=== PATIENT | female | born 1985 | race Caucasian/White ===

== ENCOUNTER 2016-06-27 00:05 | Emergency (ER) | payer OTHER ==
[~2016-06-27 00:05] MED LIST: ACETAMINOPHEN PO; BENZONATATE PO; FLEXERIL10 MG PO; IBUPROFEN PO; NO MEDICATIONS; ORUDIS75 M1 PO; PERCOCET PO
[2016-06-27 00:51] LABS: BASOPHIL# 0.1 X10e3 (0-0.3); BASOPHIL% 0.6 % (0-2.5); EOSINOPHIL# 0.1 X10e3 (0-0.7); EOSINOPHIL% 0.9 % (0.0-7.0); HEMATOCRIT 43.9 % (35.0-45.0); HEMOGLOBIN 14.2 gm/dL (12.0-16.0); LYMPHOCYTE# 2.7 X10e3 (1.0-3.5); LYMPHOCYTE% 22.6 % (17.0-45.0); MEAN CELL VOLUME 88.2 FL (83-96); MEAN CORPUSCULAR HEMOGLOBIN 28.5 PG (28-34); MEAN CORPUSCULAR HGB CONC 32.3 g/dL (30-36); MEAN PLATELET VOLUME 8.4 FL (6.5-11.5); MONOCYTE% 8.2 % (3.0-12.0); NEUTROPHIL% 67.7 % (40-75); PLATELET COUNT 267 X10e3 (140-420); RED BLOOD COUNT 4.98 X10e (3.90-5.30); RED CELL DISTRIBUTION WIDTH 13.2 % (11.0-15.5); WHITE BLOOD COUNT 11.9 X10e3 (4.0-10.5)
[2016-06-27 00:52] LABS: DIFF IND NO
[2016-06-27 01:21] LABS: ALBUMIN SERUM 4.1 g/dL (3.5-5.0); ALKALINE PHOSPHATASE 108 U/L (32-92); ALT (SGPT) 19 U/L (10-40); AMYLASE 26 U/L (0-46); AST (SGOT) 14 U/L (10-42); BILIRUBIN,TOTAL 0.4 mg/dL (0.2-2.0); BLOOD UREA NITROGEN 11 mg/dL (9-23); BUN/CREATININE RATIO 8.46; CALCIUM SERUM 8.8 mg/dL (8.4-10.2); CARBON DIOXIDE 31 mmol/L (22-31); CHLORIDE 100 mmol/L (100-111); CREATININE SERUM 1.3 mg/dL (0.6-1.4); GLOM FILT RATE Estimated 55.8 mL/min (>60); GLUCOSE FASTING 90 mg/dL (70-110); LIPASE 19 U/L (22-51); POTASSIUM 3.2 mmol/L (3.5-5.1); PROTEIN TOTAL SERUM 7.1 g/dL (6.0-8.3); SODIUM 136 mmol/L (135-145)
[2016-06-27 01:22] LABS: BILIRUBIN, DIRECT <0.1 mg/dL (0.0-0.2); BILIRUBIN,INDIRECT 0.3 mg/dL (0.0-0.9)
[2016-06-27 03:07] LABS: URINE SOURCE CLEAN CATCH
[2016-06-27 03:13] LABS: URINE APPEARANCE CLEAR; URINE BILIRUBIN NEG (NEG); URINE BLOOD 2+ (NEG); URINE COLOR YELLOW; URINE GLUCOSE NEG (NEG); URINE KETONE NEG (NEG); URINE LEUKOCYTE ESTERASE NEG (NEG); URINE NITRATE NEG (NEG); URINE PROTEIN NEG (NEG); URINE SPECIFIC GRAVITY 1.004 (1.003-1.035); URINE UROBILINOGEN 0.2 MG/DL (NEG)
[2016-06-27 03:16] LABS: URBCS1 AUWI 0-2 /[HPF] (0-2); URINE BACTERIA AUWI NEG (NEGATIVE); URINE SQUAMOUS EPITHELIAL CELL NONE SEEN /[HPF]; UWBCS1 AUWI 0-2 (0-5)
[2016-06-27 03:26] LABS: CULTURE INDICATED? NO
== END 2016-06-27 04:20 | disposition home or self-care (01) ==
LOC: CED 00:05
DX: R11.2 Nausea with vomiting, unspecified (principal); I10 Essential (primary) hypertension; Z91.040 Latex allergy status; Z88.5 Allergy status to narcotic agent
CPT/HCPCS: 36415; 80048; 80076; 81003; 82150; 83690; 84703; 85025; 96372; 99284; J0500

== ENCOUNTER 2016-10-05 22:23 | Inpatient (IN) | payer OTHER ==
[~2016-10-05] VITALS: Ht 182.9 cm; Wt 123.8 kg
--- NOTE | ~2016-10-05 | HP ---
Unit #: [id number] #: [id number] Patient: KIM MEYERS [id number] [place] [address] [id number] MR#: [id number] NAME: KIM MEYERS ROOM: P181 Age: 31 Sex: F Admission Date: 10/06/2016 : 1985 Attending Physician: Fabiano Rutledge M.D. Admitting Physician: Fabiano Rutledge M.D. Primary Care Physician: Primary Care Physician No HISTORY AND PHYSICAL HISTORY OF PRESENT ILLNESS Kim is a 31 year old admitted to [facility] because of her drug use. She is belligerent and uncooperative so her history is taken from her chart and she refuses any kind of exam. PAST MEDICAL HISTORY History of elicit substance abuse. PAST SURGICAL HISTORY Nothing reported. ALLERGIES 1. Iodine 2. Hydrocodone 3. Latex SOCIAL HISTORY Smokes one pack per day. Binge drinks frequently. Admits to regular use of marijuana and abuses benzodiazepines. FAMILY HISTORY Medically noncontributory. REVIEW OF SYSTEMS She does not answer any questions. She refuses. CURRENT MEDICATIONS 1. Vistaril 50 mg q.6 hours p.r.n. 2. Zoloft 50 mg q.a.m. 3. Desyrel p.r.n. 4. Milk of Magnesia p.r.n. 5. Maalox p.r.n. 6. Tylenol p.r.n. PHYSICAL EXAMINATION GENERAL: Alert, morbidly obese, in no apparent distress. VITAL SIGNS: Blood pressure 134/78, heart rate 60, respirations 16, temperature 98.6. WEIGHT: 273. HEIGHT: 6 foot 0 inches. SKIN: Patient refuses. Unit #: [id number] #: [id number] Patient: KIM MEYERS HEENT: Patient refuses. NECK: Patient refuses. HEART: Patient refuses. LUNGS: Patient refuses. ABDOMEN: Patient refuses. : Patient refuses. EXTREMITIES: Moves all extremities without focal deficit. Gait normal. NEUROLOGICAL: Patient refuses. Coordination: Patient refuses Deep Tendon Reflexes: Patient refuses IMPRESSION Psychiatric admission. RECOMMENDATIONS PSYCHIATRIC: Per psychiatrist. MEDICAL: I see no contraindications to participating in facility's activities. MEDICAL PROGNOSIS Good. MEDICAL CONDITION Stable. Dictated by... Kristen Arias P.A.-C. for Madison Roldan/sree TD: 10/06/2016 21:10 JOB #: [id number] HISTORY AND PHYSICAL Page 1 of 1 X Kristen Arias X HISTORY AND PHYSICAL
--- NOTE | ~2016-10-05 | PN ---
Unit #: [id number] #: [id number] Patient: GERALDINE MEYERS [id number] [facility] [address] [place] [address] [id number] MR#: [id number] NAME: GERALDINE MEYERS ROOM: 81 Age: 31 Sex: F Admission Date: 10/06/2016 : 1985 Attending Physician: Fabiano Rutledge M.D. Admitting Physician: Fabiano Rutledge M.D. Primary Care Physician: Primary Care Physician Loulou MONTENEGRO PROGRESS NOTES DATE OF SERVICE 10/07/2016 DISCUSSION Kasandra continues to be depressed although she is less tearful prior to admission. She is reporting mild improvement and good tolerance of her Zoloft. She is alert and fully oriented. Her memory and concentration are fair and her thought processes are logical with no active psychosis. She reports ongoing suicidal ideation. ASSESSMENT Major depression. PLAN Continue current treatment plan. Dictated by... Madison Hawk/sree TD: 10/14/2016 01:18 JOB #: [id number] [facility] PROGRESS NOTES Page 1 of 1 X Fabiano Rutledge MD PROGRESS NOTE
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
[2016-10-06 10:04] LABS: BASOPHIL% 0.4 % (0-2.5); EOSINOPHIL# 0.1 X10e3 (0-0.7); EOSINOPHIL% 0.5 % (0.0-7.0); HEMATOCRIT 41.8 % (35.0-45.0); HEMOGLOBIN 14.1 gm/dL (12.0-16.0); LYMPHOCYTE# 2.7 X10e3 (1.0-3.5); LYMPHOCYTE% 26.7 % (17.0-45.0); MEAN CELL VOLUME 86.7 FL (83-96); MEAN CORPUSCULAR HEMOGLOBIN 29.2 PG (28-34); MEAN CORPUSCULAR HGB CONC 33.6 g/dL (30-36); MEAN PLATELET VOLUME 8.9 FL (6.5-11.5); MONOCYTE# 0.8 X10e3 (0-1.0); MONOCYTE% 7.5 % (3.0-12.0); NEUTROPHIL# 6.6 X10e3 (1.5-7.1); NEUTROPHIL% 64.9 % (40-75); PLATELET COUNT 262 X10e3 (140-420); RED BLOOD COUNT 4.82 X10e (3.90-5.30); WHITE BLOOD COUNT 10.1 X10e3 (4.0-10.5)
[2016-10-06 10:14] LABS: DIFF IND NO
[2016-10-06 10:37] LABS: ALBUMIN SERUM 3.9 g/dL (3.5-5.0); BILIRUBIN,TOTAL 0.7 mg/dL (0.2-2.0); BUN/CREATININE RATIO 8.88; CALCIUM SERUM 9.1 mg/dL (8.4-10.2); CREATININE SERUM 0.9 mg/dL (0.6-1.4); GLOM FILT RATE Estimated 86.5 mL/min (>60); POTASSIUM 3.6 mmol/L (3.5-5.1); PROTEIN TOTAL SERUM 6.7 g/dL (6.0-8.3)
== END 2016-10-09 13:40 | disposition home or self-care (01) | DRG 881 ==
LOC: P1E 10-06 00:29
PROVIDERS: Psychiatry & Neurology Psychiatry
DX: F32.9 Major depressive disorder, single episode, unspecified (principal); R45.851 Suicidal ideations; Z91.040 Latex allergy status; F17.210 Nicotine dependence, cigarettes, uncomplicated
CPT/HCPCS: 80053; 85025